=== PATIENT | female | born 1970 | race African-American/Black ===

== ENCOUNTER 2016-05-03 18:51 | Emergency (ER) | payer OTHER ==
[2016-05-03 19:15] VITALS: BMI 41.1
[2016-05-03] MEDS ORDERED: PANTOPRAZOLE SODIUM 40 MG in SODIUM CHLORIDE 100 ML IVPB ONE (20:10)
--- NOTE | 2016-05-03 20:11 | PDOC ---
History of Present Illness - General History Source: Patient Exam Limitations: No Limitations - History of Present Illness Initial Comments: 05/03/16 20:23 The patient is a 46 year old female with significant past medical history of fibromyalgia who presents to the ED with 4 days of left upper back and left shoulder pain. Patient reports she initially developed pain to the scapular region that now radiated to the left upper chest portion and down to the left arm and hand, but not into the left sternal border. She states her pain has progressively gotten worse with no exacerbating or alleviating factors. Patient denies any trauma to the area. She denies any diaphoresis, lightheadedness, SOB , and chest pain. She also denies any recent travels, sick contacts, oral contraceptive use, or tobacco use. Patient reports her grandmother has cardiac disease. The patient denies fever, chills, cough, abdominal pain, nausea, vomiting, and diarrhea. Allergies: codeine Social History: Smokes marijuana occasionally. No tobacco use. Social etoh use. Family Hx: Grandmother (cardiac disease) Past Surgical History: None reported PCP: None reported <Danielle Lozada - Last Filed: 05/03/16 20:25> - General History Source: Patient Exam Limitations: No Limitations <Adolfo Bergeron - Last Filed: 05/03/16 23:18> - General Chief Complaint: Pain Stated Complaint: PAIN Time Seen by Provider: 05/03/16 20:02 Past History <Danielle Lozada - Last Filed: 05/03/16 20:25> - Past Medical History Asthma: No Cancer: No Cardiac Disorders: No Diabetes: No HTN: No Seizures: No Thyroid Disease: No Other medical history: fibromyalgia - Psycho/Social/Smoking Cessation Hx Suicidal Ideation: No Smoking History: Never smoked Hx Alcohol Use: No Drug/Substance Use Hx: No Hx Substance Use Treatment: No <Adolfo Bergeron - Last Filed: 05/03/16 23:18> - Past Medical History Allergies/Adverse Reactions: Allergies Allergy/AdvReac Type Severity Reaction Status Date / Time codeine [Codeine] Allergy Severe Hives Verified 08/04/13 16:56 Home Medications: Ambulatory Orders Amox-Tr/K Cl [Augmentin 875Mg Tablet] 1 tab PO BID #20 tablet 05/03/16 Cyclobenzaprine HCl [Flexeril -] 10 mg PO BID 05/03/16 Ibuprofen 800 mg PO TID #30 tablet 05/03/16 Nortriptyline HCl [Pamelor -] 25 mg PO BID 05/03/16 Tramadol HCl [Ultram] 50 mg PO Q6H PRN 05/03/16 Review of Systems - Review of Systems Able to Perform ROS?: Yes Comments:: 05/03/16 20:23 CONSTITUTIONAL: Absent: fever, no chills, no fatigue EYES: Absent: visual changes ENT: Absent: ear pain, no sore throat CARDIOVASCULAR: Absent: chest pain, no palpitations RESPIRATORY: Absent: cough, no SOB GI: Absent: abdominal pain, no nausea, no vomiting, no constipation, no diarrhea GENITOURINARY: Absent: dysuria, no frequency, no hematuria MUSKULOSKELETAL: +left upper back, left shoulder, left arm, left hand SKIN: Absent: rash NEURO: Absent: headache <Danielle Lozada - Last Filed: 05/03/16 20:25> *Physical Exam - Vital Signs Last Vital Signs Temp Pulse Resp BP Pulse Ox 97.9 F 91 H 18 134/93 99 05/03/16 19:14 05/03/16 19:14 05/03/16 19:14 05/03/16 19:14 05/03/16 19:14 - Physical Exam Comments: 05/03/16 20:23 GENERAL: Well-appearing, well-nourished. Mild distress. HEENT: Normocephalic, atraumatic. PERRL, EOM intact. CARDIOVASCULAR: Normal S1, S2. Regular rate and rhythm. PULMONARY: Clear to auscultation bilaterally. ABDOMEN: Soft, non-distended, non-tender. EXTREMITIES: Normal ROM in all four extremities. No gross deformities. SKIN: Warm, dry. No rash NEUROLOGICAL: No focal neurological deficits. <Danielle Lozada - Last Filed: 05/03/16 20:25> - Vital Signs Last Vital Signs Temp Pulse Resp BP Pulse Ox 97.9 F 91 H 18 134/93 99 05/03/16 19:14 05/03/16 19:14 05/03/16 19:14 05/03/16 19:14 05/03/16 19:14 <Adolfo Bergeron - Last Filed: 05/03/16 23:18> Heart Score/ECG Review - ECG Impressions Comment:: 05/03/16 20:26 Sinus rhythm with 1st degree AV block @85bpm Possible left atrial enlargement Nonspecific T wave abnormality Prolonged QT Abnormal ECG <Danielle Lozada - Last Filed: 05/03/16 20:25> ED Treatment Course - LABORATORY CBC & Chemistry Diagram: 05/03/16 20:09 05/03/16 20:09 <Danielle Lozada - Last Filed: 05/03/16 20:25> - LABORATORY CBC & Chemistry Diagram: 05/03/16 20:09 05/03/16 20:09 <Adolfo Bergeron - Last Filed: 05/03/16 23:18> Medical Decision Making - Medical Decision Making 05/03/16 23:18 Dr. Bergeron: The scribe's documentation has been prepared under my direction and personally reviewed by me in its entirery. I confirm that the note above accurately reflects all work, treatment, procedures, and medical decision making performed by me. <Adolfo Bergeron - Last Filed: 05/03/16 23:18> *DC/Admit/Observation/Transfer - Attestations Scribe Attestion: 05/03/16 20:23 Documentation prepared by Danielle Lozada, acting as emergency medical technician for Adolfo Bergeron MD <Danielle Lozada - Last Filed: 05/03/16 20:25> - Discharge Dispostion Admit: No <Adolfo Bergeron - Last Filed: 05/03/16 23:18> Diagnosis at time of Disposition: Pneumonia Qualifiers: Pneumonia type: due to unspecified organism Laterality: bilateral Lung location : lower lobe of lung Qualified Code(s): J18.9 - Pneumonia, unspecified organism - Discharge Dispostion Disposition: HOME Condition at time of disposition: Stable - Prescriptions Prescriptions: Amox-Tr/K Cl [Augmentin 875Mg Tablet] 1 tab PO BID #20 tablet Ibuprofen 800 mg PO TID #30 tablet - Referrals Referrals: STAFF,NOT ON [Primary Care Provider] - - Patient Instructions Printed Discharge Instructions: DI for Pneumonia -- Adult Additional Instructions: Please follow up with your doctor as soon as possible. Drink plenty of fluids. Return if any problems
[2016-05-03 20:23] LABS: BASOPHIL 1.1 % (0-2.0); EOSINOPHIL 1.3 % (0-4.5); MCH 29.2 pg (25.7-33.7); MCHC 32.7 g/dl (32.0-36.0); MEAN CELL VOLUME 89.6 fl (80-96); MEAN PLT VOLUME 8.1 fl (7.5-11.1); NEUTROPHILS 59.3 % (42.8-82.8); PLATELET COUNT 320 K/MM3 (134-434); RDW 14.5 % (11.6-15.6); WHITE BLOOD COUNT 8.8 K/mm3 (4.0-10.0)
[2016-05-03] MEDS ORDERED: PANTOPRAZOLE SODIUM 100 ML IVPB ONE (20:23)
[2016-05-03 20:38] LABS: INR 0.99 (0.82-1.09); PROTHROMBIN TIME (PATIENT) 10.9 SEC (9.98-11.88)
[2016-05-03 20:41] LABS: MAGNESIUM 2.1 mg/dL (1.8-2.4)
[2016-05-03 20:47] LABS: ALBUMIN 3.2 g/dl (3.4-5.0); ANION GAP 9 (8-16); BILIRUBIN,TOTAL 0.1 mg/dL (0.2-1.0); CALCIUM 8.4 mg/dL (8.5-10.1); CO2 26 mmol/L (21-32); CREATININE 0.8 mg/dL (0.55-1.02); GLUCOSE,RANDOM 143 mg/dL (74-106); SGOT/AST 17 U/L (15-37); SGPT/ALT 20 U/L (12-78); TOT PROT 7.1 g/dl (6.4-8.2)
[2016-05-03 20:50] LABS: ALK PHOS 67 U/L (45-117); TROPONIN I < 0.02 ng/ml (0.00-0.05)
[2016-05-03] MEDS ORDERED: KETOROLAC TROMETHAMINE 30 MG/1 ML VIAL IVPUSH ONE (21:31)
[2016-05-03] MEDS ORDERED: KETOROLAC TROMETHAMINE 30 MG/1 ML VIAL ONE (21:32)
[2016-05-03] MEDS ORDERED: ONDANSETRON 4 MG/2 ML VIAL IVPUSH STA (22:02)
[2016-05-03] MEDS ORDERED: morphine CARPU-JECT 2 MG/1 ML DISP.SYRIN IVPUSH ONE (22:02)
[2016-05-03] MEDS ORDERED: morphine CARPU-JECT 4 MG/1 ML DISP.SYRIN ONE (22:03)
[2016-05-03 23:28] VITALS: BP 139/98; PULSE 85; TEMP 97.8
[2016-05-04] MEDS ORDERED: AMOX TR/POT CLAV 875MG/125MG TABLETS (FP) PO ONE (00:15)
[2016-05-04] MEDS ORDERED: AMOX TR/POT CLAV 875MG/125MG TABLETS (FP) ONE (00:17)
--- NOTE | 2016-05-04 13:48 | EKG ---
Test Reason : Blood Pressure : / mmHG Vent. Rate : 085 BPM Atrial Rate : 085 BPM P-R Int : 226 ms QRS Dur : 078 ms QT Int : 392 ms P-R-T Axes : 062 054 042 degrees QTc Int : 466 ms SINUS RHYTHM WITH 1ST DEGREE A-V BLOCK POSSIBLE LEFT ATRIAL ENLARGEMENT NONSPECIFIC T WAVE ABNORMALITY PROLONGED QT ABNORMAL ECG NO PREVIOUS ECGS AVAILABLE Confirmed by REFUGIO ALVARENGA, NORI ([id number]) on 05/04/2016 1:48:18 PM Referred By: Confirmed By:NORI HUFF MD
== END 2016-05-04 00:26 | disposition home or self-care (01) ==
LOC: JER 18:51
PROC: 3E033GC Introduction of Other Therapeutic Substance into Peripheral Vein, Percutaneous Approach (ICD-10-PCS; principal; 2016-05-03)
PROC: 3E033NZ Introduction of Analgesics, Hypnotics, Sedatives into Peripheral Vein, Percutaneous Approach (ICD-10-PCS; 2016-05-03)
PROC: 3E0333Z Introduction of Anti-inflammatory into Peripheral Vein, Percutaneous Approach (ICD-10-PCS; 2016-05-03)
PROC: 3E033GC Introduction of Other Therapeutic Substance into Peripheral Vein, Percutaneous Approach (ICD-10-PCS; 2016-05-03)
DX: J18.9 Pneumonia, unspecified organism (principal)
CPT/HCPCS: 36415; 71275-TC; 80053; 82550; 83690; 83735; 84484; 84703; 85025; 85379; 85610; 93005; 93010; 96365; 96375; 99283-25

== ENCOUNTER → 2019-01-28 | Day surgery (SDC) | payer OTHER ==
--- NOTE | 2019-01-30 13:28 | PATH ---
Surgical Pathology Report Patient Name: MICHEAL KU [facility]. Rec. #: [id number] /Age/Gender: 1970 (Age: 48) / F Account: [id number] Location: [facility] Taken: 01/28/2019 Received: 01/29/2019 Reported: 01/30/2019 Physicians: Lana Webb M.D. Specimen(s) Received LEFT BREAST CORE BIOPSY Clinical History Nonpalpable lesion Ultrasound findings: Probably benign 0.56 cm Final Diagnosis BREAST, LEFT, 3:00, ULTRASOUND GUIDED CORE BIOPSY: BENIGN BREAST PARENCHYMA WITH CHRONIC INFLAMMATION, HISTIOCYTIC AND GIANT CELL INFILTRATE WITH ASSOCIATED FIBROSIS, REACTIVE CHANGES, AND FAT NECROSIS. Comment: Suggest clinical and radiologic correlation. Electronically Signed Sarai Julian M.D. Gross Description Received in formalin labeled "left breast 3:00," are 3 suarez-red portions of fibroadipose tissue ranging from 0.5 x 0.2 x 0.1 cm to 0.7 x 0.2 x 0.1 cm. The specimens are submitted in toto in one cassette. Time to formalin fixation: Less than one minute Total formalin fixation time: Approximately 20 hours. /01/29/2019 saudi01/29/2019
== END | disposition home or self-care (01) ==
LOC: JRADUS-SUR 09:15
PROVIDERS: ATTEND Family Medicine Geriatric Medicine
PROC: 0H9U3ZX Drainage of Left Breast, Percutaneous Approach, Diagnostic (ICD-10-PCS; principal; 2019-01-28)
DX: N60.32 Fibrosclerosis of left breast (principal)
CPT/HCPCS: 19083; 87899; 88305-TC; A4648